=== PATIENT | male | born 2000 | race Caucasian/White ===

== ENCOUNTER 2025-02-21 02:44 | Emergency (ER) | payer OTHER, MEDICAID ==
[~2025-02-21] VITALS: Ht 170.2 cm; Wt 77.0 kg
[2025-02-21 02:48] VITALS: BP 145/75; PULSE 99; RESP 20; TEMP 98.4; O2SAT 99
[2025-02-21] MEDS ORDERED: HYDROCODONE/ACETAMINOPHEN 5/325MG TABLET PO ONE (04:00)
== END 2025-02-21 04:00 | disposition left against medical advice (07) ==
LOC: ER 02:44
DX: S09.90XA Unspecified injury of head, initial encounter (principal); M25.552 Pain in left hip; M25.561 Pain in right knee; V03.10XA Pedestrian on foot injured in collision with car, pick-up truck or van in traffic accident, initial encounter; Y93.89 Activity, other specified; Y92.410 Unspecified street and highway as the place of occurrence of the external cause; Y99.8 Other external cause status
CPT/HCPCS: 99283